=== PATIENT | female | born 1985 | race Two or more races ===

== ENCOUNTER 2021-05-22 10:02 | Inpatient (IN) | payer MEDICAID ==
[~2021-05-22] VITALS: Ht 152.4 cm; Wt 66.0 kg
[2021-05-22 13:31] VITALS: BP 119/70
[2021-05-22 16:08] VITALS: BP 108/67
[2021-05-22] MEDS: HALOPERIDOL 5 MG TABLET PO PRN (16:53)
[2021-05-22] MEDS: ZOLPIDEM TARTRATE 10 MG TABLET PO PRN (20:13)
[2021-05-23 00:57] VITALS: BP 110/66
[2021-05-23 07:31] LABS: BASOPHILS % (AUTO) 0.3 % (0.0-2.0); EOSINOPHILS % (AUTO) 0.4 % (1.0-6.0); HEMOGLOBIN 13.2 g/dL (12.0-16.0); LYMPHOCYTES # (AUTO) 2.1 K/uL (1.0-4.8); LYMPHOCYTES % (AUTO) 23.4 % (22.0-44.0); MEAN CORPUSCULAR HEMOGLOBIN 30.4 pg (26.0-34.0); MEAN CORPUSCULAR HGB CONC 33.8 G/dL (31.0-37.0); MEAN CORPUSCULAR VOLUME 90 fL (80-100); MONOCYTES # (AUTO) 0.6 K/uL (0.1-1.0); MONOCYTES % (AUTO) 6.4 % (2.0-9.0); NEUTROPHILS # (AUTO) 6.4 K/uL (1.8-7.7); NEUTROPHILS % (AUTO) 69.5 % (40.0-70.0); PLATELET COUNT (AUTO) 215 K/uL (150-450); RED BLOOD CELL COUNT(AUTO) 4.33 MIL/uL (4.00-5.20); RED CELL DISTRIBUTION WIDTH 12.9 % (11.5-14.5)
[2021-05-23 08:14] VITALS: BP 105/57
[2021-05-23] MEDS: HALOPERIDOL 5 MG TABLET PO PRN ×2 (08:47→16:14)
[2021-05-23 09:10] LABS: HEMOGLOBIN A1C 5.1 % (3.8-5.6)
[2021-05-23 09:38] LABS: ALANINE AMINOTRANSFERASE 12 U/L (12-78); ALBUMIN 3.6 g/dL (3.4-5.0); ALKALINE PHOSPHATASE 61 U/L (46-116); ANION GAP 5 mmol/L (8-16); ASPARTATE AMINOTRANSFERASE < 5 U/L (15-37); BILIRUBIN,TOTAL 0.4 mg/dL (0.1-1.0); CALCIUM, TOTAL 8.9 mg/dL (8.8-10.5); CARBAMAZEPINE (TEGRETOL) 1.1 mcg/mL (4.0-12.0); CARBON DIOXIDE 26 mmol/L (22-29); CHLORIDE 103 mmol/L (98-107); CHOL/HDL RATIO 4.8 (3.9-5.7); CHOLESTEROL 160 mg/dL (131-200); CREATININE 0.72 mg/dL (0.60-1.30); FREE T4 (FREE THYROXINE) 1.08 ng/dL (0.76-1.46); GLOMERULAR FILTR. RATE CALC > 60 mL/min (>60); GLUCOSE,RANDOM 86 mg/dL (70-110); HCG,QUANTITATIVE < 1 mIU/mL (0-6); HDL CHOLESTEROL 33 mg/dL (40-60); LDL CHOL (CALC.) 113 mg/dL (0-130); SODIUM SERUM 134 mmol/L (136-145); THYROID STIMULATING HORMONE 3.76 uIU/mL (0.36-3.74); TOTAL PROTEIN, SERUM 7.3 g/dL (6.4-8.2); TRIGLYCERIDES 68 mg/dL (15-150); UREA NITROGEN, BLOOD 11 mg/dL (7-18)
[2021-05-23 16:10] VITALS: BP 122/67
[2021-05-23] MEDS: ZOLPIDEM TARTRATE 10 MG TABLET PO PRN (20:03)
[2021-05-23] MEDS: NICOTINE 21 MG/24 HOUR PATCH TD SCH (20:03)
[2021-05-23] MEDS ORDERED: MAGNESIUM HYDROXIDE SUSPENSION 30 ML UDCUP PO PRN (21:15)
[2021-05-23] MEDS ORDERED: BENZOCAINE/MENTHOL LOZENGE PO PRN (21:15)
[2021-05-23] MEDS ORDERED: PETROLATUM,WHITE 28 GM JELLY TP PRN (21:15)
[2021-05-23] MEDS ORDERED: BACITRACIN 28 GM OINTMENT TP PRN (21:15)
[2021-05-23] MEDS ORDERED: DOCUSATE SODIUM 100 MG CAPSULE PO PRN (21:15)
[2021-05-23] MEDS ORDERED: LOPERAMIDE HCL 2 MG CAPSULE PO PRN (21:15)
[2021-05-23] MEDS ORDERED: ALBUTEROL SULFATE HFA 90 MCG/PUFF 8 GM INHALER IH PRN (21:15)
[2021-05-23] MEDS ORDERED: IBUPROFEN 600 MG TABLET PO PRN (21:15)
[2021-05-23] MEDS ORDERED: ACETAMINOPHEN 325 MG TABLET PO PRN (21:15)
[2021-05-23] MEDS ORDERED: OMEPRAZOLE 20 MG CAPSULE PO PRN (21:15)
[2021-05-23] MEDS ORDERED: ONDANSETRON HCL 4 MG TABLET PO PRN (21:15)
[2021-05-23] MEDS ORDERED: MAG HYDROX/AL HYDROX/SIMETH ES 30 ML SUSPENSION UDCUP PO PRN (21:15)
[2021-05-23] MEDS ORDERED: CloNIDine HCL 0.1 MG TABLET PO PRN (21:15)
[2021-05-24 01:08] VITALS: BP 116/65
[2021-05-24] MEDS: NICOTINE 21 MG/24 HOUR PATCH TD SCH (08:20)
[2021-05-24 08:21] VITALS: BP 138/80
[2021-05-24] MEDS: HALOPERIDOL 5 MG TABLET PO PRN (08:26)
[2021-05-24] MEDS ORDERED: QUET100T34 PO (11:48)
[2021-05-24] MEDS ORDERED: QUEtiapine FUMARATE 100 MG TABLET PO SCH (21:00)
== END 2021-05-24 13:02 | disposition home or self-care (01) | DRG 750 ==
LOC: B2S 13:03
PROVIDERS: ADMIT Psychiatry & Neurology Psychiatry; ATTEND Psychiatry & Neurology Psychiatry
DX: F25.9 Schizoaffective disorder, unspecified (principal); E03.9 Hypothyroidism, unspecified; F41.9 Anxiety disorder, unspecified; K59.00 Constipation, unspecified; G47.00 Insomnia, unspecified; Z72.0 Tobacco use
CPT/HCPCS: 80053; 80061; 80156; 83036; 84436; 84439; 84443; 84702; 85025; G0480